=== PATIENT | female | born 1990 | race Caucasian/White ===

== ENCOUNTER 2017-11-17 06:08 | Inpatient (IN) | payer OTHER, MEDICAID ==
[~2017-11-17] VITALS: Ht 154.9 cm; Wt 80.9 kg
[2017-11-17] MEDS ORDERED: OXYTOCIN 30U/ 0.9% NaCL 500ML 500 ML IV ONE (06:30)
[2017-11-17] MEDS ORDERED: OXYTOCIN 30U/ 0.9% NaCL 500ML 500 ML IV PRN (06:30)
[2017-11-17] MEDS ORDERED: ONDANSETRON 2MG/ML, 2ML IVPush PRN (06:30)
[2017-11-17] MEDS ORDERED: FENTANYL PF 100 MCG/2ML IV PRN (06:30)
[2017-11-17] MEDS ORDERED: FENTANYL PF 100 MCG/2ML IVPush PRN (06:30)
[2017-11-17 06:33] VITALS: BP 126/85
[2017-11-17] MEDS ORDERED: PENICILLIN GK 5,000,000 UNITS in DEXTROSE 5% 100 ML IVPB ONE (07:00)
[2017-11-17] MEDS ORDERED: PLEASE ENTER ALLERGIES MC SCH (07:00)
[2017-11-17 07:03] LABS: BASOPHILS # (AUTO) 0.04 x10^3/uL (0-0.1); BASOPHILS % (AUTO) 1 % (0-1); EOSINOPHILS # (AUTO) 0.04 x10^3/uL (0-0.4); EOSINOPHILS % (AUTO) 1 % (1-7); LYMPHOCYTES # (AUTO) 1.39 x10^3/uL (1-3.4); LYMPHOCYTES % (AUTO) 21 % (22-44); MD NO; MEAN CORPUSCULAR HEMOGLOBIN 29.7 pg (27.0-34.8); MEAN CORPUSCULAR HGB CONC 33.5 g/dL (32.4-35.8); MEAN CORPUSCULAR VOLUME 88.7 fL (80-100); MEAN PLATELET VOLUME 7.1 fL (7.4-10.4); MONOCYTES # (AUTO) 0.61 x10^3/uL (0.2-0.8); MONOCYTES % (AUTO) 9 % (2-9); NEUTROPHILS # (AUTO) 4.53 x10^3/uL (1.8-6.8); NEUTROPHILS % (AUTO) 69 % (42-75); PLATELET COUNT 263 x10^3/uL (130-400); RED BLOOD COUNT 4.46 x10^6/uL (3.82-5.3); RED CELL DISTRIBUTION WIDTH 14.8 % (9.6-15.2)
[2017-11-17] MEDS ORDERED: MISOPROSTOL 200 MCG TABLET ONE (07:26)
[2017-11-17] MEDS ORDERED: OXYTOCIN 30U/ 0.9% NaCL 500ML 0 ML ONE (07:26)
[2017-11-17] MEDS ORDERED: NEWBORN KIT ONE (07:26)
[2017-11-17] MEDS: PENICILLIN GK 2,500,000 UNITS in DEXTROSE 5% 100 ML IVPB SCH ×5 (11:57→23:52)
[2017-11-17] MEDS: LACTATED RINGERS 1,000 ML IV SCH ×3 (12:45→23:51)
[2017-11-17] MEDS: D5%-LACTATED RINGERS 1,000 ML IV SCH ×3 (14:30→22:58)
[2017-11-17] MEDS ORDERED: LIDOCAINE 1%, 10ML ONE (16:45)
[2017-11-17] MEDS ORDERED: OXYTOCIN 30U/ 0.9% NaCL 500ML 500 ML ONE (17:30)
[2017-11-17] MEDS ORDERED: LIDOCAINE-MPF 2% ,5ML ONE ×2 (22:24→22:35)
[2017-11-17] MEDS ORDERED: FENTANYL/BUPIV./NS/PF 250 ML EPIDCONT ONE ×2 (22:25→22:35)
[2017-11-17] MEDS ORDERED: LACTATED RINGERS 1,000 ML IV SCH (22:31)
[2017-11-17] MEDS ORDERED: FENTANYL/BUPIV./NS/PF 250 ML EPIDCONT SCH (22:31)
[2017-11-17] MEDS ORDERED: LIDOCAINE 1%-EPI 1:100K, 20ML ONE (22:35)
[2017-11-17] MEDS ORDERED: EPHEDRINE 50 MG/ML, 1ML IVPush PRN (23:00)
[2017-11-17] MEDS ORDERED: LACTATED RINGERS 1,000 ML IVBOLUS PRN (23:00)
[2017-11-17] MEDS ORDERED: NALOXONE 0.4 MG/ML, 1ML IVPush PRN (23:00)
[2017-11-17] MEDS ORDERED: OXYTOCIN 30U/ 0.9% NaCL 500ML 500 ML IV SCH (23:51)
[2017-11-17] MEDS ORDERED: METOCLOPRAMIDE 5 MG/ML, 2ML ONE (23:51)
[2017-11-17] MEDS ORDERED: SODIUM CITRATE/CITRIC ACID 30 ML UDC ONE (23:51)
[2017-11-18] MEDS ORDERED: SODIUM CITRATE/CITRIC ACID 30 ML UDC PO ONE
[2017-11-18] MEDS ORDERED: METOCLOPRAMIDE 5 MG/ML, 2ML IV ONE
[2017-11-18] MEDS ORDERED: LIDOCAINE-MPF 2% ,5ML ONE (00:03)
[2017-11-18] MEDS ORDERED: EPHEDRINE 50 MG/ML, 1ML ONE (00:13)
[2017-11-18] MEDS ORDERED: METOCLOPRAMIDE 5 MG/ML, 2ML ONE (00:13)
[2017-11-18] MEDS ORDERED: CEFAZOLIN 1,000 MG ONE (00:13)
[2017-11-18] MEDS ORDERED: OXYTOCIN 10 UNITS/ML, 1ML ONE (00:13)
[2017-11-18] MEDS ORDERED: SODIUM CITRATE/CITRIC ACID 30 ML UDC ONE (00:13)
[2017-11-18] MEDS ORDERED: KETOROLAC 30 MG/1 ML ONE (00:41)
[2017-11-18] MEDS ORDERED: MEPERIDINE/PF 50 MG/ML ONE (00:54)
[2017-11-18] MEDS: LACTATED RINGERS 1,000 ML IV SCH ×7 (01:01→22:49)
[2017-11-18] MEDS: OXYTOCIN 30U/ 0.9% NaCL 500ML 500 ML IV SCH ×4 (01:01→22:49)
[2017-11-18] MEDS ORDERED: NEWBORN KIT ONE (01:08)
[2017-11-18] MEDS ORDERED: ONDANSETRON 2MG/ML, 2ML IV PRN ×2 (01:30→03:30)
[2017-11-18] MEDS ORDERED: OXYcodone/APAP 5/325MG TABLET PO PRN (01:30)
[2017-11-18] MEDS ORDERED: MISOPROSTOL 200 MCG TABLET PO PRN (01:30)
[2017-11-18] MEDS ORDERED: morphine SULFATE 10 MG/ML, 1ML IVPush PRN (01:30)
[2017-11-18] MEDS: PENICILLIN GK 2,500,000 UNITS in DEXTROSE 5% 100 ML IVPB SCH (03:00)
[2017-11-18 03:10] VITALS: BP 121/81
[2017-11-18] MEDS: OXYcodone IR 5MG TABLET PO PRN ×4 (03:10→18:21)
[2017-11-18] MEDS ORDERED: OXYcodone 5 MG/5 ML ORAL.SOL UDC PO PRN (03:30)
[2017-11-18] MEDS ORDERED: morphine SULFATE 10 MG/ML, 1ML IV PRN (03:30)
[2017-11-18] MEDS ORDERED: EPHEDRINE 50 MG/ML, 1ML IVPush PRN (03:30)
[2017-11-18] MEDS ORDERED: FENTANYL PF 100 MCG/2ML IVPush PRN (03:30)
[2017-11-18] MEDS ORDERED: MEPERIDINE/PF 25MG/0.5ML IV PRN (03:30)
[2017-11-18] MEDS: KETOROLAC 30 MG/1 ML IV SCH ×3 (06:28→18:21)
[2017-11-18 08:30] LABS: BASOPHILS # (AUTO) 0.03 x10^3/uL (0-0.1); BASOPHILS % (AUTO) 0 % (0-1); EOSINOPHILS % (AUTO) 0 % (1-7); LYMPHOCYTES # (AUTO) 1.46 x10^3/uL (1-3.4); LYMPHOCYTES % (AUTO) 14 % (22-44); MD NO; MEAN CORPUSCULAR HEMOGLOBIN 30.1 pg (27.0-34.8); MEAN CORPUSCULAR HGB CONC 33.7 g/dL (32.4-35.8); MEAN CORPUSCULAR VOLUME 89.5 fL (80-100); MEAN PLATELET VOLUME 6.9 fL (7.4-10.4); MONOCYTES # (AUTO) 0.73 x10^3/uL (0.2-0.8); MONOCYTES % (AUTO) 7 % (2-9); NEUTROPHILS # (AUTO) 8.44 x10^3/uL (1.8-6.8); NEUTROPHILS % (AUTO) 79 % (42-75); PLATELET COUNT 210 x10^3/uL (130-400); RED BLOOD COUNT 3.85 x10^6/uL (3.82-5.3); RED CELL DISTRIBUTION WIDTH 15.2 % (9.6-15.2)
[2017-11-18 08:53] VITALS: BP 114/67
[2017-11-18] MEDS: DOCUSATE 100 MG CAPSULE PO PRN (08:59)
[2017-11-18] MEDS: PRENATAL VIT/IRON/FA 1 EACH TABLET PO SCH (08:59)
[2017-11-18 19:15] VITALS: BP 108/62
[2017-11-19] MEDS: DOCUSATE 100 MG CAPSULE PO PRN ×3 (00:16→23:09)
[2017-11-19] MEDS: KETOROLAC 30 MG/1 ML IV SCH ×4 (00:17→18:58)
[2017-11-19] MEDS: OXYcodone IR 5MG TABLET PO PRN ×5 (00:17→23:09)
[2017-11-19] MEDS: LACTATED RINGERS 1,000 ML IV SCH ×2 (01:01→01:45)
[2017-11-19 08:47] VITALS: BP 108/71
[2017-11-19] MEDS: PRENATAL VIT/IRON/FA 1 EACH TABLET PO SCH (08:56)
[2017-11-19] MEDS ORDERED: MEASLES,MUMPS&RUBELLA VACC/PF 0.5 ML SQ-VACC ONE (13:30)
[2017-11-19] MEDS ORDERED: DIPH,PERTUSS(ACELL),TET VAC/PF NC IM-VACC ONE (13:30)
[2017-11-19 19:15] VITALS: BP 108/67
[2017-11-19] MEDS ORDERED: GUAIFENESIN/DM 200-20MG, 10ML UDC PO PRN (21:30)
[2017-11-20] MEDS: KETOROLAC 30 MG/1 ML IV SCH (00:30)
[2017-11-20] MEDS: IBUPROFEN 600 MG TABLET PO PRN ×2 (01:02→08:30)
[2017-11-20] MEDS: LACTATED RINGERS 1,000 ML IV SCH ×3 (03:01→09:01)
[2017-11-20] MEDS: OXYTOCIN 30U/ 0.9% NaCL 500ML 500 ML IV SCH ×2 (03:01→03:03)
[2017-11-20] MEDS: OXYcodone IR 5MG TABLET PO PRN ×3 (04:26→13:33)
[2017-11-20 07:22] VITALS: BP 113/79
[2017-11-20] MEDS: DOCUSATE 100 MG CAPSULE PO PRN (08:29)
[2017-11-20] MEDS: PRENATAL VIT/IRON/FA 1 EACH TABLET PO SCH (08:30)
[2017-11-20] MEDS ORDERED: IBUP-1222 PO (10:39)
[2017-11-20] MEDS ORDERED: OXYC5TAB3 PO (10:39)
== END 2017-11-20 14:10 | disposition home or self-care (01) | DRG 765 ==
LOC: LDIP 06:08 → 2NW 11-18 02:47
PROVIDERS: ADMIT Student in an Organized Health Care Education/Training Program; ATTEND Student in an Organized Health Care Education/Training Program
PROC: 10D00Z1 Extraction of Products of Conception, Low, Open Approach (ICD-10-PCS; principal; 2017-11-18)
DX: O66.41 Failed attempted vaginal birth after previous cesarean delivery (principal); O63.9 Long labor, unspecified; O34.211 Maternal care for low transverse scar from previous cesarean delivery; O62.1 Secondary uterine inertia; Z37.0 Single live birth; Z3A.41 41 weeks gestation of pregnancy; Z83.3 Family history of diabetes mellitus; Z23 Encounter for immunization; Z82.49 Family history of ischemic heart disease and other diseases of the circulatory system; Z90.49 Acquired absence of other specified parts of digestive tract
CPT/HCPCS: 36415; 85025; 86850; 86900; 90715; J0690; J1885; J2175; J2540; J3490; J2270; J2590; J2765; J3010; J7120; J7121